=== PATIENT | male | born 1945 | race African-American/Black ===

== ENCOUNTER 2018-02-06 02:41 | Inpatient (IN) | payer MEDICARE ==
[~2018-02-06] VITALS: Ht 180.3 cm; Wt 62.6 kg
[2018-02-06] MEDS ORDERED: TEMAZEPAM 7.5 MG CAPSULE PO PRN (05:30)
[2018-02-06] MEDS ORDERED: LORAZEPAM 0.5 MG TABLET PO PRN (05:30)
[2018-02-06] MEDS ORDERED: MAGNESIUM HYDROXIDE 30 ML UDC PO PRN (05:30)
[2018-02-06] MEDS ORDERED: ACETAMINOPHEN 325 MG TABLET PO PRN (05:30)
[2018-02-06] MEDS ORDERED: MAG HYDROX/AL HYDROX/SIMETH 30 ML UDC PO PRN (05:30)
[2018-02-06 05:37] VITALS: BP 128/73
--- NOTE | 2018-02-06 06:06 | NUR ---
ADMISSION NOTES: ADMITTED THIS 72 Y/O MALE FROM [facility]. PATIENT IS ON 5150 HOLD FOR GD, DTS, DTO. PER HOLD PATIENT WAS FOUND AT [employer] [facility] AND HE BELIEVES HE OWNS THE [employer]. 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 RESIDENT REPORTS HE WAS TOLD PT WAS STANDING IN THE ROAD IN TRAFFIC. UPON FACE TO FACE PATIENT IS ALERT AND ORIENTED X1, CONFUSED, DISORIENTED, DISORGANIZED. V/S STABLE. RESPIRATION EVEN AND NON-LABORED, NO APPARENT DISTRESS NOTED, NO COMPLAIN OF PAIN/DISCOMFORT AT THIS TIME. PATIENT IS AMBULATORY. SKIN/BODY ASSESSMENT DONE. SKIN CLEAR AND INTACT. PT PSYCH DX OF PSYCHOSIS. MEDICAL DX OF HTN, DEMENTIA. BELONGINGS INVENTORIED AND CHECKED FOR CONTRABAND, VALUABLES PUT TO SAFE. PATIENT IS UNDER THE PSYCHIATRIC CARE OF DR. ISLAS AND MEDICAL CARE OF DR. VALENZUELA. BED LOCKED AND PLACED ON LOWEST POSITION TO MAINTAIN SAFETY. WILL CONTINUE TO MONITOR Q 15 MINS. FOR SAFETY AND BEHAVIOR.
[2018-02-06] MEDS ORDERED: IBUP-1955 PO (06:21)
[2018-02-06] MEDS ORDERED: METH4TAB17 PO (06:21)
[2018-02-06] MEDS ORDERED: HYDR25TA4 PO (07:48)
[2018-02-06] MEDS ORDERED: LOSA25TA13 PO (07:48)
[2018-02-06] MEDS ORDERED: DILT-32 PO (07:48)
[2018-02-06 08:00] VITALS: BP 141/78
--- NOTE | 2018-02-06 11:39 | NUR ---
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 Per pt, he would like to be placed in a homeless intermediate or a board and care. SW will work with the pt and the MD regarding appropriate discharge planning. SW will form a safe and proper discharge.
[2018-02-06 16:18] VITALS: BP 157/98
--- NOTE | 2018-02-06 17:15 | NUR ---
GPS/RN CHON JEAN HAND STRAIGHTENER MADE AWARE OF ELEVATED BP AND TO RECONCILE HOME MEDS
[2018-02-06] MEDS: OLANZAPINE 2.5 MG TABLET PO SCH (17:25)
[2018-02-06 20:00] VITALS: BP 141/80
--- NOTE | 2018-02-06 20:57 | NUR ---
PLACED A CALL TO DR. NICOLAS GREGORIO REGARDING MED RECON, PER DR. VALENZUELA HE'LL REVIEW IT.
--- NOTE | 2018-02-06 21:15 | NUR ---
PT WAS SEEN BY DR. VALENZUELA
[2018-02-06] MEDS ORDERED: IBUPROFEN 600 MG TABLET PO PRN (21:30)
--- NOTE | 2018-02-06 21:40 | NUR ---
RECEIVED A CALL FROM DR. VALENZUELA REGARDING MED RECON , PER DR. VALENZUELA TO ASK THE FAMILY/ HOSP REGARDING THE DOSES OF HOME MEDS, ASKED THE PT REGARDING FAMILY MEMBER'S NUMBER OR IF HE REMEMBERS THE DOSE OF HIS HOME MEDICATIONS , PT DOESN'T REMEMBER, WILL ENDORSE TO DAY SHIFT RN ACCORDINGLY.
[2018-02-07 06:59] LABS: BASOPHILS % (AUTO) 0.5 % (0.0-2.0); EOSINOPHILS % (AUTO) 3.8 % (0.0-6.0); HEMATOCRIT 36 % (39-51); HEMOGLOBIN 11.8 g/dL (13.5-17.5); LYMPHOCYTES # (AUTO) 2.7 /CMM (0.8-4.8); LYMPHOCYTES % (AUTO) 38.3 % (20.0-44.0); MEAN CORPUSCULAR HEMOGLOBIN 31 PG (26.0-33.0); MEAN CORPUSCULAR HGB CONC 33 g/dl (31.0-36.0); MEAN CORPUSCULAR VOLUME 94 fL (80-96); MONOCYTES # (AUTO) 0.5 /CMM (0.1-1.30); MONOCYTES % (AUTO) 7.2 % (2.0-12.0); NEUTROPHILS # (AUTO) 3.6 /CMM (1.8-8.9); NEUTROPHILS % (AUTO) 50.2 % (43.0-81.0); PLATELET COUNT (AUTO) 220 /CMM (150-450); RDW COEFFICIENT OF VARIATION 15.2 (11.5-15.0); WHITE BLOOD COUNT (AUTO) 7.1 K/uL (4.3-11.0)
[2018-02-07 07:20] LABS: ALANINE AMINOTRANSFERASE 43 U/L (12-78); ALBUMIN 2.8 g/dL (3.4-5.0); ALKALINE PHOSPHATASE 52 U/L (46-116); ASPARTATE AMINOTRANSFERASE 47 U/L (15-37); BILIRUBIN,TOTAL 0.4 mg/dL (0.2-1.0); CALCIUM, SERUM 8.7 mg/dL (8.5-10.1); CARBON DIOXIDE 32 mmol/L (21-32); CHLORIDE 103 mmol/L (98-107); CREATININE 0.9 mg/dL (0.6-1.3); GLUCOSE 94 mg/dL (74-106); POTASSIUM 3.8 mmol/L (3.5-5.1); SODIUM SERUM 140 mmol/L (136-145); UREA NITROGEN, BLOOD 9 mg/dL (7-18)
[2018-02-07 07:26] LABS: CHOLESTEROL 161 mg/dL (<200); HDL CHOLESTEROL 72 mg/dL (40-60); LDL 80 mg/dL (0-99); TRIGLYCERIDES 85 mg/dL (30-150)
[2018-02-07 08:00] VITALS: BP 148/84
--- NOTE | 2018-02-07 08:25 | NUR ---
Dr. Graham called and ordered a Neurology consult with Dr. Adorno and said she will notify her.
[2018-02-07] MEDS: OLANZAPINE 2.5 MG TABLET PO SCH ×2 (09:08→17:09)
[2018-02-07 16:00] VITALS: BP 148/91
--- NOTE | 2018-02-07 17:32 | NUR ---
GPS/RN NEW ORDERS FROM CHON JEAN NP RECEIVED AND CARRIED OUT
[2018-02-07] MEDS: AMLODIPINE BESYLATE 10 MG TABLET PO SCH (18:11)
[2018-02-07 20:00] VITALS: BP 153/96
[2018-02-08 08:00] VITALS: BP 144/99
[2018-02-08] MEDS: OLANZAPINE 2.5 MG TABLET PO SCH ×2 (09:09→17:40)
[2018-02-08] MEDS: AMLODIPINE BESYLATE 10 MG TABLET PO SCH (09:10)
[2018-02-08 15:54] VITALS: BP 112/76
[2018-02-08 20:17] VITALS: BP 134/90
--- NOTE | 2018-02-08 21:20 | NUR ---
OFFERED PATIENT A SLEEPING PILL, STATED, " I DON'T NEED ONE."
[2018-02-09 08:00] VITALS: BP 146/94
[2018-02-09] MEDS: OLANZAPINE 2.5 MG TABLET PO SCH ×2 (08:16→16:04)
[2018-02-09] MEDS: AMLODIPINE BESYLATE 10 MG TABLET PO SCH (08:17)
--- NOTE | 2018-02-09 14:30 | NUR ---
[id number]: PT IS 72 YEARS OLD MALE DISCHARGE TO [facility] LOCATED AT [address] [place] [address] IN STABLE CONDITION. COMPLAINT WITH MEDICATIONS, COOPERATIVE WITH TREATMENT PLANS. PT CRISTINO SI/HI. BEHAVIOR IMPROVED, PSYCHIATRIC TX PLANS MET, MEDICAL TX PLANS DEFERRED FOR CONTINUAL MONITORING. EDUCATED PT ABOUT AFTER CARE PLAN AND COPY PROVIDED. RETURNED PERSONAL BELONGINGS TO PT. MEDICATIONS RECONCILED WITH DR. KATZ AND DR. MONDRAGON. DR. KATZ MEDICALLY CLEARED PT. REPORT GIVEN TO GRAFF FOR CONTINUITY OF CARE. PT REFUSED SKIN ASSESSMENT. PT REFUSED TO SIGN DISCHARGE PAPERWORK. PT LEFT THE UNIT VIA AMBULANCE Addendum: 02/09/18 at 1435 by ASHKAN STRINGER RN WRONG PATIENT
[2018-02-09 15:50] LABS: INR 0.96 (0.87-1.13)
[2018-02-09 16:00] VITALS: BP 110/66
--- NOTE | 2018-02-09 16:04 | NUR ---
CECILE faxed a referral to Freda ([phone]) from [facility] per Dr. Graham due to his brain injury.
--- NOTE | 2018-02-09 16:05 | NUR ---
Freda ([phone]) from [facility] contacted the SW and stated that the pt was approved.
--- NOTE | 2018-02-09 19:30 | NUR ---
GPS RN NOTE, RECEIVED PATIENT AWAKE AND IN BED, NO S/S OR COMPLAINTS OF PAIN AT THIS TIME. PATIENT IS DISPLAYING NO S/S OF APPARENT DISTRESS AT THIS TIME. PATIENT BREATHING IS UNLABORED WITH EQUAL RISE AND FALL CHEST. PATIENT IS ALERT AND ORIENTED X 3 ON ROOM AIR WITH A SPO2 98 %. PATIENT IS MED COMPLIANT, DISORGANIZED, COOPERATIVE, ANXIOUS, GUARDED, AND NEEDS REORIENTATION. PATIENT DENIES SUICIDE IDEATIONS AND HOMICIDAL IDEATIONS AT THIS TIME. PATIENT EDUCATED ON THE USE OF THE CALL FERGUSON. PATIENT BED SIDE RAILS UP X 2 FOR SAFETY, BED IS LOCKED AND LOW, WILL CONTINUE TO MONITOR AND MAINTAIN SAFETY WITH THE HELP OF SAFE.
[2018-02-09 20:00] VITALS: BP 105/62
[2018-02-10 08:00] VITALS: BP 128/79
[2018-02-10] MEDS: AMLODIPINE BESYLATE 10 MG TABLET PO SCH (08:27)
[2018-02-10] MEDS: OLANZAPINE 2.5 MG TABLET PO SCH (08:27)
[2018-02-10 16:00] VITALS: BP 105/63
[2018-02-10 19:53] VITALS: BP 112/74
[2018-02-10] MEDS ORDERED: OLANZAPINE 2.5 MG TABLET PO SCH (22:00)
[2018-02-11] MEDS: OLANZAPINE 2.5 MG TABLET PO SCH (08:01)
[2018-02-11] MEDS: AMLODIPINE BESYLATE 10 MG TABLET PO SCH (08:01)
[2018-02-11 08:14] VITALS: BP 128/63
--- NOTE | 2018-02-11 12:42 | NUR ---
DISCHARGE NOTE PATIENT RECEIVED DISCHARGE INSTRUCTIONS AND VERBALIZED UNDERSTANDING. PATIENT DENIES SUICIDAL IDEATION AT THIS TIME. COOPERATIVE AND CALM. DISCHARGE PAPERWORKS SIGNED, PATIENT HAS NO QUESTIONS AT THIS TIME. SKIN CLEAR AND INTACT. REPORT GIVEN TO JOSE MIGUEL DAVILA ETHYLBENZENE OXIDIZER AT [facility]. PATIENT HAS NO PERIPHERAL IV. BELONGINGS RECONCILED, PATIENT ONLY HAS AN EYE GLASSES. NEEDS ATTENDED AND MET, WAITING FOR TRANSPORTATION.
--- NOTE | 2018-02-11 13:00 | NUR ---
DISCHARGE PATIENT PICKED UP BY AMBULANCE, ACCOMPANIED BY 2 EMT PERSONNEL. REPORT GIVEN TO PROBATION AND PATROL AGENT. EYEGLASSES WITH THE PATIENT. PATIENT LEFT VIA GURNEY, IN NO DISTRESS.
--- NOTE | 2018-02-11 15:26 | NUR ---
Pt was accepted to [facility] ([facility]).
--- NOTE | 2018-02-11 15:27 | NUR ---
Discharge Note: Pt was discharged to [facility] ([facility]) located at [address] [place] [address] ([phone]). Pt was transported via [facility] (Trip #[id number]) at 1:00PM. Pt did not have any family to contact about this discharge plan but the pt and the MD agreed. Upon discharge, the pt was calm and cooperative. He appeared to be in a euthymic mood and had a normal affect. The pt denied any suicidal or homicidal ideation as well as visual and auditory hallucinations. Pt was provided with three substance use referrals as well. Pt will be under the care of his psychiatrist, Dr. Graham, located at [address] [address], [place] [address]; and his car unloader, Dr. Pryor, located at [address] [facility] [address], [place] [address]; . Referrals: [facility] [address] [facility] [place] [address] Tel. [facility] [address] [place] Provider Mental Health Treatment Tele-dermatology HIV Services [facility] [place] [address] [place] [address] [facility] [address] [place] [address]
== END 2018-02-11 13:00 | DRG 885 ==
LOC: GPS 04:47
PROVIDERS: ADMIT Psychiatry & Neurology Psychiatry; ATTEND Psychiatry & Neurology Psychiatry
DX: F29 Unspecified psychosis not due to a substance or known physiological condition (principal); F41.9 Anxiety disorder, unspecified; F03.90 Unspecified dementia, unspecified severity, without behavioral disturbance, psychotic disturbance, mood disturbance, and anxiety; I10 Essential (primary) hypertension; I25.10 Atherosclerotic heart disease of native coronary artery without angina pectoris; S06.5X9S Traumatic subdural hemorrhage with loss of consciousness of unspecified duration, sequela; X58.XXXS Exposure to other specified factors, sequela; Z59.0 Homelessness
CPT/HCPCS: 36415; 70450-TC; 80048-TC; 80053-TC; 80061-TC; 85025-TC; 85610-TC; 85730-TC; 87081-TC